=== PATIENT | male | born 1975 | race African-American/Black ===

== ENCOUNTER 2019-08-25 20:50 | Emergency (ER) | payer OTHER ==
[~2019-08-25] VITALS: Ht 175.3 cm; Wt 104.3 kg
[2019-08-25] MEDS ORDERED: ACETAMINOPHEN 325 MG TAB PO ONE (21:15)
[2019-08-25 21:39] LABS: STREPTOCOCCUS GRP A ANTIGEN NEGATIVE (NEGATIVE)
[2019-08-25 21:49] LABS: INFLUENZAE A&B ANTIGEN (RAPID) POSITIVE FLU A (NEGATIVE)
[2019-08-25] MEDS ORDERED: IBUPROFEN 600 MG TAB PO STA (21:50)
--- NOTE | 2019-08-25 22:56 | Diagnostic Imaging Report ---
EXAMINATION: CHEST 2 VIEWS INDICATION: ^fever cough ^[id number] ^2201 ^Y COMPARISON: None FINDINGS: TUBES and LINES: None. LUNGS: Lungs are well inflated. Minimal perihilar, peribronchial thickening and perihilar streaky densities may reflect viral infection versus reactive airway disease. Patchy density in the superior left lung base may represent developing pneumonia in the proper clinical setting. PLEURA: No pleural effusion or pneumothorax. HEART AND MEDIASTINUM: The cardiomediastinal silhouette is unremarkable. BONES AND SOFT TISSUES: No acute osseous lesion. Soft tissues are unremarkable. UPPER ABDOMEN: No free air under the diaphragm. IMPRESSION: Minimal viral infection versus reactive airway disease. Patchy density in the superior left lung base may represent developing pneumonia in the proper clinical setting. Recommend follow-up chest PA and lateral views in 6-8 weeks to document resolution. Signed by: Dr. Gerardo Aguirre M.D. on 08/25/2019 10:53 PM
--- NOTE | 2019-08-26 00:16 | Diagnostic Imaging Report ---
EXAM: CT Chest WITHOUT contrast 08/25/2019 11:21 PM INDICATION: Fever cough.. Pneumonia. COMPARISON: None TECHNIQUE: Chest was scanned utilizing a multidetector helical scanner from the lung apex through the level of the adrenal glands without administration of IV contrast. Absence of intravenous contrast decreases sensitivity for detection of lymphadenopathy and vascular pathology. Coronal and sagittal reformations were obtained. Routine protocol was performed. IV CONTRAST: None RADIATION DOSE: Total DLP: 598.91 mGy*cm Estimated effective dose: (DLP x 0.014 x size factor) mSv COMPLICATIONS: None FINDINGS: LINES/ TUBES: None. LUNGS AND AIRWAYS: Reticulonodular opacities associated with mild patchy ground-glass densities in the left lung base posteriorly, associated with mild patchy density. Airways are normal. PLEURA: The pleural spaces are clear. HEART AND MEDIASTINUM: The thyroid gland is normal. No mediastinal, hilar or axillary lymphadenopathy. The heart is normal in size.. There is no pericardial effusion. UPPER ABDOMEN: Limited non-contrast views of the upper abdomen show diffuse hepatic steatosis. The adrenal glands are normal. BONES: The visualized bony thorax is within normal limits. SOFT TISSUES: Unremarkable. IMPRESSION: Reticular nodular opacities in the posterior left lung base suggestive of infectious etiology including atypical pneumonia. Signed by: Dr. Gerardo Aguirre M.D. on 08/26/2019 12:13 AM
[2019-08-26 00:25] VITALS: BP 137/94
== END 2019-08-26 00:35 | disposition home or self-care (01) ==
LOC: ER 20:50
DX: R50.9 Fever, unspecified (principal); R05 Cough; J11.00 Influenza due to unidentified influenza virus with unspecified type of pneumonia
CPT/HCPCS: 71046; 71250; 83518; 87070; 87400; 99284

== ENCOUNTER 2022-10-28 23:28 | Emergency (ER) | payer OTHER ==
[~2022-10-28] VITALS: Ht 175.3 cm; Wt 104.3 kg
[2022-10-28] MEDS ORDERED: HYDROCODONE/APAP 10MG-325MG TAB ONE (23:58)
[2022-10-29] MEDS ORDERED: HYDROCODONE/APAP 10MG-325MG TAB PO ONE
[2022-10-29] MEDS ORDERED: HYDROCODON-ACE1 EAC9 PO (01:50)
[2022-10-29] MEDS ORDERED: NAPROSYN500 MG PO (01:50)
[2022-10-29 01:51] VITALS: O2SAT 96
== END 2022-10-29 02:16 | disposition home or self-care (01) ==
LOC: ER 23:34
DX: M25.562 Pain in left knee (principal); I10 Essential (primary) hypertension; E11.9 Type 2 diabetes mellitus without complications
CPT/HCPCS: 99284